=== PATIENT | female | born 1970 | race Caucasian/White ===

== ENCOUNTER 2017-08-11 09:54 | Emergency (ER) | payer OTHER ==
[~2017-08-11] VITALS: Ht 167.6 cm; Wt 118.0 kg
[2017-08-11 10:03] VITALS: Ht 167.6 cm; Wt 118.0 kg
[2017-08-11] MEDS ORDERED: KETOROLAC 60 MG INJ IM STA (10:50)
[2017-08-11 11:19] LABS: ADD UMIC YES; UR ASCORBIC ACID NEGATIVE (NEGATIVE); UR BILIRUBIN (Dip) NEGATIVE (NEGATIVE); UR BLOOD (Dip) NEGATIVE (NEGATIVE); UR CLARITY CLEAR (CLEAR); UR COLOR YELLOW (YELLOW); UR GLUCOSE (Dip) NEGATIVE (NEGATIVE); UR KETONES (Dip) NEGATIVE (NEGATIVE); UR LEUKOCYTE ESTERASE (Dip) NEGATIVE Leu/ul (NEGATIVE); UR MUCUS FEW /HPF (NONE SEEN); UR NITRITE (Dip) NEGATIVE (NEGATIVE); UR RBC 1 /HPF (0-5); UR SPECIFIC GRAVITY (Dip) 1.026 (1.003-1.030); UR SQUAMOUS EPITHELIAL CELL FEW /HPF (FEW); UR TOTAL PROTEIN (Dip) 2+ mg/dl (NEGATIVE); UR UROBILINOGEN (Dip) 1+ mg/dL (NEGATIVE)
--- NOTE | 2017-08-11 11:47 | RADRPT ---
PROCEDURE: Right Shoulder series CLINICAL INDICATION: Right shoulder pain TECHNIQUE: Three views of the right shoulder. COMPARISON: None available FINDINGS: The osseous structures are intact with no evidence of fracture or dislocation. Mild right acromiocla vicular osteoarthropathy. A lobular right upper lobe mass like consolidation is noted. A small right pleural effusion is present. Recommend chest x-ray PA and lateral and chest CT to further evaluate. IMPRESSION: 1. No acute fractures or dislocations. 2. Lobular mass-like consolidation or in the right upper lobe. Recommend PA and lateral chest x-ray and chest CT. 3. Small right pleural effusion A call report was made to Deirdre Rivera at 08/11/2017 11:46:55 AM following the completion of t he examination by the undersigned. E R provider just informed me the patient has known lung cancer. RPTAT: HDC .Dolly Thomas MD, MD Date Time Electronically viewed and signed by .Dolly Thomas MD, on 08/11/2017 11:47 .C/
[2017-08-11] MEDS ORDERED: IBUP-1542 PO (13:21)
--- NOTE | 2017-08-11 13:23 | ERD ---
ER Documentation Chief Complaint Chief Complaint Pt BIB with R shoulder pain x 1 month radiating back X 3 days. Lung CA . ROS All systems reviewed and are negative except as per history of present illness. Medications Home Meds Active Scripts Ibuprofen* (Motrin*) 600 Mg Tab, 600 MG PO Q6, #30 TAB Prov:JEN AHUJAAngel GAVIN 08/11/17 Allergies Allergies: Coded Allergies: Acetaminophen (Verified Allergy, Mild, RASH, 09/22/11) Amoxicillin (Verified Allergy, Mild, RASH, 09/22/11) Codeine (Verified Allergy, Mild, RASH, 09/22/11) PMhx/Soc History of Surgery: Yes (Partial right lung removal d/t CA,hernia removal) Anesthesia Reaction: No Hx Neurological Disorder: No Hx Respiratory Disorders: Yes (ASTHMA) Hx Cardiac Disorders: Yes (HTN) Hx Psychiatric Problems: No Hx Miscellaneous Medical Probl: Yes (HX of DM, HTN, Lung CA, ) Hx Alcohol Use: No Hx Substance Use: No Hx Tobacco Use: No Smoking Status: Never smoker Physical Exam Vitals Vital Signs Date Time Temp Pulse Resp B/P Pulse Ox O2 Delivery O2 Flow Rate FiO2 08/11/17 10:03 99.3 98 16 141/68 95 Physical Exam Const: [] Head: Atraumatic Eyes: Normal Conjunctiva ENT: Normal External Ears, Nose and Mouth. Neck: Full range of motion..~ No meningismus. Resp: Clear to auscultation bilaterally Cardio: Regular rate and rhythm, no murmurs Abd: Soft, non tender, non distended. Normal bowel sounds Skin: No petechiae or rashes Back: No midline or flank tenderness Ext: No cyanosis, or edema Neur: Awake and alert Psych: Normal Mood and Affect Results 24 hrs Laboratory Tests Test 08/11/17 11:04 Urine Color YELLOW Urine Clarity CLEAR Urine pH 5.0 Urine Specific [place] 1.026 Urine Ketones NEGATIVEmg/dL Urine Nitrite NEGATIVEmg/dL Urine Bilirubin NEGATIVEmg/dL Urine Urobilinogen 1+mg/dL Urine Leukocyte Esterase NEGATIVELeu/ul Urine Microscopic RBC 1/HPF Urine Microscopic WBC 2/HPF Urine Squamous Epithelial Cells FEW/HPF Urine Mucus FEW/HPF Urine Hemoglobin NEGATIVEmg/dL Urine Glucose NEGATIVEmg/dL Urine Total Protein 2+mg/dl Current Medications Medications (Trade) Dose Ordered Sig/Gio Route PRN Reason Start Time Stop Time Status Last Admin Dose Admin Ketorolac Tromethamine (Toradol) 60 mg ONCE STAT IM 08/11/17 10:50 08/11/17 10:52 DC 08/11/17 11:03 DIAGNOSTIC IMAGING REPORT Patient: MICHELLE MEEK : 1970 Age: 46 Sex: F MR #: [id number] DOS: 08/11/17 1050 Ordering MD: DEIRDRE DOUGLASS PA-C Location: [facility] Room/Bed: PROCEDURE: Right Shoulder series CLINICAL INDICATION: Right shoulder pain TECHNIQUE: Three views of the right shoulder. COMPARISON: None available FINDINGS: The osseous structures are intact with no evidence of fracture or dislocation. Mild right acromioclavicular osteoarthropathy. A lobular right upper lobe mass like consolidation is noted. A small right pleural effusion is present. Recommend chest x-ray PA and lateral and chest CT to further evaluate. IMPRESSION: 1. No acute fractures or dislocations. 2. Lobular mass-like consolidation or in the right upper lobe. Recommend PA and lateral chest x-ray and chest CT. 3. Small right pleural effusion A call report was made to Deirdre Douglass at 08/11/2017 11:46:55 AM following the completion of the examination by the undersigned. E R provider just informed me the patient has known lung cancer. RPTAT: HDC .Dolly Thomas MD, MD Date Time Electronically viewed and signed by .Dolly Thomas MD, on 08/11/2017 11: 47 .C/ CC: DEIRDRE DOUGLASS PA-C Departure Diagnosis: Primary Impression: Shoulder pain Chronicity: acute Laterality: right Qualified Code: M25.511 - Acute pain of right shoulder Condition: Fair Patient Instructions: Shoulder Pain (Uncertain Cause) Referrals: your oncologist [facility] Hours: Mon-Fri 9:00 AM - 5:00 PM Additional Instructions: Llame al doctor MAANA y parmjit duncan MARNI PARA DENTRO DE 1-2 BOLDEN.Dgale a la secretaria que nosotros le instruimos hacer esta marni.Avise o llame si renner condicin se empeora antes de la marni. Regresa aqui si peor o no mejor. Make an appointment with your collection support specialist to follow-up. Make an appointment with your primary care doctor for referral to teacher selection specialist. Take ibuprofen or Tylenol for pain JEN AHUJA PA-C Aug 11, 2017 13:23
[2017-08-11 13:32] VITALS: BP 132/72; PULSE 77; RESP 16; TEMP 99.3
--- NOTE | 2017-08-11 16:39 | ERD ---
ER Documentation Chief Complaint Chief Complaint Pt BIB with R shoulder pain x 1 month radiating back X 3 days. Lung CA . HPI 46-year-old female patient with a past medical history of lung cancer presents to the ED complaining of right shoulder pain that started 1 month ago. Patient describes the pain as achy and throbbing. Rates it a 10 out of 10. Reports that she has not taken any medications for her pain. States that she followed up with her primary care doctor and was diagnosed with tendinitis of her right shoulder. Reports that she has not had an xray. Denies any heavy lifting. Reports that she is right-handed. Denies any fever, chills, nausea, vomiting, chest pain, shortness of breath, cough, hemoptysis, hematemesis. Reports that she just finish her chemotherapy treatment 1 month ago. States that she surgery for her lung cancer 1 year ago. Reports that she has a chronic mass in her right lung and has a follow up appointment with her oncologist in September 2017. ROS All systems reviewed and are negative except as per history of present illness. Medications Home Meds Active Scripts Ibuprofen* (Motrin*) 600 Mg Tab, 600 MG PO Q6, #30 TAB Prov:JEN AHUJA PA-C 08/11/17 Allergies Allergies: Coded Allergies: Acetaminophen (Verified Allergy, Mild, RASH, 09/22/11) Amoxicillin (Verified Allergy, Mild, RASH, 09/22/11) Codeine (Verified Allergy, Mild, RASH, 09/22/11) PMhx/Soc History of Surgery: Yes (Partial right lung removal d/t CA,hernia removal) Anesthesia Reaction: No Hx Neurological Disorder: No Hx Respiratory Disorders: Yes (ASTHMA) Hx Cardiac Disorders: Yes (HTN) Hx Psychiatric Problems: No Hx Miscellaneous Medical Probl: Yes (HX of DM, HTN, Lung CA, ) Hx Alcohol Use: No Hx Substance Use: No Hx Tobacco Use: No Smoking Status: Never smoker Physical Exam Vitals Vital Signs Date Time Temp Pulse Resp B/P Pulse Ox O2 Delivery O2 Flow Rate FiO2 08/11/17 13:32 99.3 77 16 132/72 95 Room Air 08/11/17 10:03 99.3 98 16 141/68 95 Physical Exam Const: [id number], well-nourished. In no acute distress. Head: Atraumatic, normocephalic Eyes: Normal Conjunctiva without injection ENT: Normal external ear, nose and mouth. Neck: Full range of motion. No meningismus. Resp: Clear to auscultation bilaterally. No wheezing, rhonchi, rales, or crackles. No accessory muscle use. No retractions. Cardio: Regular rate and rhythm, no murmurs Skin: No petechiae or rashes Back: No midline tenderness. No CVA tenderness. Ext: No cyanosis, or edema. Cap refill less than 2 seconds. Distal pulses intact bilaterally. Tenderness to palpation of the right AC joint and biceps tendon. No erythema. No edema. No warmth to touch. Patient was able to flex, extend, internally and externally rotate however had limited range of motion of right shoulder. Neur: Awake and alert. Normal gait and coordination. Muscle strength 5/5. Sensation intact bilaterally. Psych: Normal Mood and Affect Results 24 hrs Laboratory Tests Test 08/11/17 11:04 Urine Color YELLOW Urine Clarity CLEAR Urine pH 5.0 Urine Specific [place] 1.026 Urine Ketones NEGATIVEmg/dL Urine Nitrite NEGATIVEmg/dL Urine Bilirubin NEGATIVEmg/dL Urine Urobilinogen 1+mg/dL Urine Leukocyte Esterase NEGATIVELeu/ul Urine Microscopic RBC 1/HPF Urine Microscopic WBC 2/HPF Urine Squamous Epithelial Cells FEW/HPF Urine Mucus FEW/HPF Urine Hemoglobin NEGATIVEmg/dL Urine Glucose NEGATIVEmg/dL Urine Total Protein 2+mg/dl Current Medications Medications (Trade) Dose Ordered Sig/Gio Route PRN Reason Start Time Stop Time Status Last Admin Dose Admin Ketorolac Tromethamine (Toradol) 60 mg ONCE STAT IM 08/11/17 10:50 08/11/17 10:52 DC 08/11/17 11:03 Procedures/MDM 46-year-old female patient with no significant past medical history presents to the ED complaining of shoulder pain that occurred 1 month ago. Patient is afebrile and nontoxic-appearing. Patient has normal vital signs. A right shoulder x-ray was ordered to further evaluate patient. Patient treated with Toradol 60 mg IM here in the ED with improvement. PROCEDURE: Right Shoulder series CLINICAL INDICATION: Right shoulder pain TECHNIQUE: Three views of the right shoulder. COMPARISON: None available FINDINGS: The osseous structures are intact with no evidence of fracture or dislocation. Mild right acromioclavicular osteoarthropathy. A lobular right upper lobe mass like consolidation is noted. A small right pleural effusion is present. Recommend chest x-ray PA and lateral and chest CT to further evaluate. IMPRESSION: 1. No acute fractures or dislocations. 2. Lobular mass-like consolidation or in the right upper lobe. Recommend PA and lateral chest x-ray and chest CT. 3. Small right pleural effusion A call report was made to Deirdre Douglass at 08/11/2017 11:46:55 AM following the completion of the examination by the undersigned. E R provider just informed me the patient has known lung cancer. X-ray shows mild right acromioclavicular osteoarthropathy. No fractures or dislocations. Patient was also noted to have a mass consolidation in the right upper lung. CXR was considered however patient reports that this is chronic. Patient does have an appointment in September 2017 with her oncologist. I instructed her to make an earlier appointment to follow-up care within 1 week as well as follow up with orthopedic physician for further care and management of right shoulder for possible MRI. Low suspicion for acute myocardial infarction, pneumothorax, pericarditis, myocarditis, endocarditis, pneumonia, cardiac tamponade, pulmonary embolism, pleural effusion, AAA, aortic dissection , Boerhaave's syndrome, cardiac dysrhythmias,meningitis, intracranial bleed, seizure, stroke, TIA or other emergent conditions. Patient's extremity symptoms have stabilized while they have been evaluated in the department and are appropriate for outpatient follow up. No evidence of fractures, dislocations , compartment syndrome, neurologic injury, vascular injury, open joint, open fracture, tendon laceration, septic arthritis, osteomyelitis, DVT, foreign body , or other emergent conditions. Discharge medications: Ibuprofen Instructed patient to return to the ED sooner for any worsening symptoms. Patient's questions were answered. Patient understood and agreed with discharge plan. Patient discharged stable. Departure Diagnosis: Primary Impression: Shoulder pain Chronicity: acute Laterality: right Qualified Code: M25.511 - Acute pain of right shoulder Condition: Fair Patient Instructions: Shoulder Pain (Uncertain Cause) Referrals: your oncologist [facility] Hours: Mon-Fri 9:00 AM - 5:00 PM Additional Instructions: Llame al doctor HARRISON y parmjit duncan MARNI PARA DENTRO DE 1-2 BOLDEN.Dgale a la secretaria que nosotros le instruimos hacer esta marni.Avise o llame si renner condicin se empeora antes de la marni. Regresa aqui si peor o no mejor. Make an appointment with your oncology technician to follow-up. Make an appointment with your primary care doctor for referral to plant technical specialist. Take ibuprofen for pain DEIRDRE DOUGLASS PA-C Aug 11, 2017 16:39
== END 2017-08-11 13:32 | disposition home or self-care (01) ==
LOC: FTE 09:54
DX: M25.511 Pain in right shoulder (principal); I10 Essential (primary) hypertension; J45.909 Unspecified asthma, uncomplicated; E11.9 Type 2 diabetes mellitus without complications; Z85.118 Personal history of other malignant neoplasm of bronchus and lung
CPT/HCPCS: 73030; 81001; 96372; J1885; Z7502

== ENCOUNTER 2017-10-07 18:53 | Inpatient (IN) | END 2017-10-31 09:15 | disposition EXP | DRG 871 ==